=== PATIENT | male | born 1945 | race Caucasian/White ===

== ENCOUNTER → 2021-04-18 | Outpatient (CLI) | payer BC ==
[~2021-04-18] MED LIST: ASA81BEC PO; FISH OIL 1,0001 EAC9 PO; FLUOXETINE HCL20 M1 PO; GEMFIBROZIL 60600 MG PO; HYDROCODON-ACE1 EAC7 PO; LIPITOR40 MG PO; NEURONTIN100 MG PO; NEXIUM40 MG PO; NORVASC10 MG PO; OMEPRAZOLE40 MG; PERCOCET 5-3251 EACH PO; PLAVIX 75 MG TA75 MG PO; PROSCAR 5MG TABL5 MG PO; TAMSULOSIN HCL0.4 MG PO; TYLENOL ARTHRI650 MG PO; VITAMIN D310 MCG PO; ZOFRAN4 MG PO
== END ==
LOC: M.PC 08:30
PROVIDERS: ATTEND Physical Medicine & Rehabilitation
DX: M51.36 Other intervertebral disc degeneration, lumbar region (principal); M47.816 Spondylosis without myelopathy or radiculopathy, lumbar region; Z79.891 Long term (current) use of opiate analgesic; Z79.899 Other long term (current) drug therapy; Z79.01 Long term (current) use of anticoagulants